=== PATIENT | female | born 1985 | race African-American/Black ===

== ENCOUNTER 2020-05-04 15:33 | Emergency (ER) | payer OTHER ==
[~2020-05-04] VITALS: Ht 162.6 cm; Wt 202.8 kg
--- NOTE | 2020-05-04 15:54 | Emergency Department Note ---
History of Present Illnes History of Present Illness Chief Complaint: COVID PUI History of Present Illness This is a 35 year old female 3 days of fevers and cough. Seen at 3 days prior with neg COVID-19 test. Seen by PCP today and sent to ED for evaluation. Per spouse patient had a total of 3 negative COVID tests Historian: Patient, Family Member Past Medical/Family History Physician Review I have reviewed the patient's past medical and family history. Any updates have been documented here. Past Medical History Past Medical History: Hypertension Past Surgical History: Hernia Repair Social History Physically hurt or threatened: No Physical Exam Related Data Allergies: Coded Allergies: No Known Allergies (Unverified , 05/04/20) Vital signs reviewed: Yes Physical Exam CONSTITUTIONAL Constitutional: Present obese, Present morbidly obese, Present distressed, Present ill appearing HENT HENT: Present normocephalic, Present atraumatic, Present oropharynx clear/moist, Present nose normal HENT L/R: Present left ext ear normal, Present right ext ear normal EYES Eyes: Reports PERRL, Reports conjunctivae normal NECK Neck: Present ROM normal PULMONARY Pulmonary: Present effort normal, Present breath sounds normal CARDIOVASCULAR Cardiovascular: Present regular rhythm, Present heart sounds normal, Present capillary refill normal, Present normal rate, Present tachycardia, Present LLE edema, Present RLE edema GASTROINTESTINAL Abdominal: Present soft, Present nontender, Present bowel sounds normal GENITOURINARY Genitourinary: Present exam deferred SKIN Skin: Present warm, Present dry MUSCULOSKELETAL Musculoskeletal: Present ROM normal NEUROLOGICAL Neurological: Present alert, Present oriented x 3, Present no gross motor or sensory deficits PSYCHOLOGICAL Psychological: Present mood/affect normal, Present judgement normal Results Imaging Imaging results reviewed: Yes Impressions [place] [id number] Patient Name: EUGENE HAMM MR #: [id number] : 1985 Age/Sex: 35/F Req #: [id number] Adm Physician: Ordered by: EDYTA VARGAS DO Report #: [id number] Location: ER Room/Bed: Procedure: [id number] DX/CHEST SINGLE (PORTABLE) Exam Date: 05/04/20 Exam Time: 1621 REPORT STATUS: Signed EXAMINATION: CHEST SINGLE (PORTABLE) INDICATION: Pneumonia, shortness of breath COMPARISON: None FINDINGS: LINES/TUBES:None LUNGS:The lungs are moderately inflated. Hazy bilateral opacities. PLEURA:No pleural effusion or pneumothorax. MEDIASTINUM:The cardiomediastinal silhouette appears enlarged. BONES/SOFT TISSUES:No acute osseous injury. ABDOMEN:No free air under the diaphragm. IMPRESSION: Cardiomegaly and hazy bilateral opacities can be seen in the setting of edema, however superimposed pneumonitis could also have this appearance and should be excluded clinically. Signed by: Sri Stanford MD on 05/04/2020 4:34 PM Dictated By: SRI STANFORD MD [id number] Transcribed By: KASEY on 05/04/20 1634 COPY TO: EDYTA VARGAS DO~ Procedures 12 Lead ECG Interpretation ECG Interpretation : ECG: ECG 1 Date: May 04, 2020 Time: 16:02 Prior ECG tracings: reviewed Rhythm: sinus tachycardia BPM: 105 ST segments normal: Yes T waves normal: Yes Other findings: no other findings Clinical Impression: non-specific ECG Critical Care Time Total Critical Care Time (min): 31 Time ED Physician saw patient: 16:03 Critcal care necessary due to: respiratory failure Critcal care time spent by me: develop tx plan w patient/surrogate, discussion w primary provider, examination of patient, obtaining hx from patient/surrogate, order/perform tx or interventions, order/review laboratory studies, order/review radiographic studies, pulse oximetry, re-evaluation of patient condition, vascular access procedures Assessment & Plan Medical Decision Making MDM 35 yof presents with dyspea and hypoxia. Respiratory distress upon arrival. Diff Dx : PE, PTX, CHF, Sepsis, COVID-19 URI infection, ACS, COPDD, ARDS, airway obstruction, Lung CA. Patient oxygen responsive. Plan to admit transfer Assessment & Plan Final Impression: (1) CHF (congestive heart failure) (2) Person under investigation for COVID-19 (3) Hypoxia EDYTA VARGAS DO May 04, 2020 15:54
[2020-05-04] MEDS ORDERED: ACETAMINOPHEN 325 MG TAB PO STA (16:05)
[2020-05-04 16:28] LABS: BASOPHILS % 0.4 % (0.0-1.0); EOSINOPHILS # (AUTO) 0.1 (0.0-0.4); EOSINOPHILS % 0.7 % (0.0-6.0); HEMATOCRIT 29.5 % (34.2-44.1); HEMOGLOBIN 8.5 g/dL (12.0-16.0); LYMPHOCYTES # (AUTO) 1.9 (1.0-3.2); LYMPHOCYTES % 18.5 % (18.0-39.1); MEAN CORPUSCULAR HEMOGLOBIN 21.2 pg (28-32); MEAN CORPUSCULAR HGB CONC 28.8 g/dL (31-35); MEAN CORPUSCULAR VOLUME 73.6 fL (81-99); MONOCYTES # (AUTO) 1.4 (0.2-0.8); MONOCYTES % 14.3 % (4.4-11.3); NEUTROPHILS # (AUTO) 6.6 (2.1-6.9); NEUTROPHILS % 65.4 % (38.7-80.0); PLATELET COUNT 157 x10e3/uL (140-360); RED BLOOD COUNT 4.01 x10e6/uL (3.6-5.1)
[2020-05-04] MEDS ORDERED: PIPER-TAZ 3.375 GM 50 ML IV ONE (16:30)
--- NOTE | 2020-05-04 16:37 | Diagnostic Imaging Report ---
EXAMINATION: CHEST SINGLE (PORTABLE) INDICATION: Pneumonia, shortness of breath COMPARISON: None FINDINGS: LINES/TUBES:None LUNGS:The lungs are moderately inflated. Hazy bilateral opacities. PLEURA:No pleural effusion or pneumothorax. MEDIASTINUM:The cardiomediastinal silhouette appears enlarged. BONES/SOFT TISSUES:No acute osseous injury. ABDOMEN:No free air under the diaphragm. IMPRESSION: Cardiomegaly and hazy bilateral opacities can be seen in the setting of edema, however superimposed pneumonitis could also have this appearance and should be excluded clinically. Signed by: Luis M Stanford MD on 05/04/2020 4:34 PM
[2020-05-04 16:48] LABS: ALANINE AMINOTRANSFERASE 12 IU/L (0-55); ALBUMIN 3.4 g/dL (3.5-5.0); ALBUMIN/GLOBULIN RATIO 0.9 (0.8-2.0); ALKALINE PHOSPHATASE 52 IU/L (40-150); ANION GAP 12.8 mmol/L (8-16); BLOOD UREA NITROGEN 14 mg/dL (7-26); BUN/CREATININE RATIO 13 (6-25); CALCIUM 8.3 mg/dL (8.4-10.2); CARBON DIOXIDE 26 mmol/L (22-29); CHLORIDE 102 mmol/L (98-107); CREATINE KINASE 156 IU/L (29-168); CREATININE, SERUM 1.08 mg/dL (0.57-1.11); EST GLOMERULAR FILTRATION RATE > 60 ML/MIN (60-); GLUCOSE 122 mg/dL (74-118); POTASSIUM 3.8 mmol/L (3.5-5.1); SODIUM 137 mmol/L (136-145)
[2020-05-04 16:54] LABS: B-TYPE NATRIURETIC PEPTIDE2 284.8 pg/mL (0-100)
--- NOTE | 2020-05-04 17:30 | NUR ---
patient o2 sats are 86% on room air. put on 4 liters nc to maintain saturation level above 92%
--- NOTE | 2020-05-04 21:28 | NUR ---
[facility] states 1.5 hour ETA at this time due to bariatric stretcher request.
[2020-05-04 21:50] LABS: HYPOCHROMASIA SLIGHT; PLATELET ESTIMATE ADEQUATE; PLATELET MORPHOLOGY COMMENT NORMAL; RBC MORPHOLOGY COMMENT NORMAL
[2020-05-04 22:44] LABS: ABG PCO2 41 mmHg (35-45); ABG PH 7.41 (7.35-7.45)
[2020-05-04 22:45] LABS: ABG HCO3 27 mmol/L (22-26); ABG PO2 86 mmHg (80-105)
== END 2020-05-04 23:11 | disposition short-term general hospital (02) ==
LOC: ER 15:55
DX: I11.0 Hypertensive heart disease with heart failure (principal); I50.9 Heart failure, unspecified; R09.02 Hypoxemia; Z20.828 Contact with and (suspected) exposure to other viral communicable diseases; E66.01 Morbid (severe) obesity due to excess calories; Z11.59 Encounter for screening for other viral diseases; Z68.45 Body mass index [BMI] 70 or greater, adult
CPT/HCPCS: 36415; 36600; 71045; 80053; 82550; 82553; 82805; 83605; 83880; 84484; 85025; 87040; 87635; 93005; 93306; 99285; J2543; U0002

== ENCOUNTER 2021-12-09 13:15 | Emergency (ER) | payer SELFPAY ==
[~2021-12-09] VITALS: Ht 165.1 cm; Wt 237.2 kg
[2021-12-09 13:42] LABS: BASOPHILS % 0.3 % (0.0-1.0); EOSINOPHILS # (AUTO) 0.1 (0.0-0.4); EOSINOPHILS % 1.7 % (0.0-6.0); HEMATOCRIT 40.2 % (34.2-44.1); HEMOGLOBIN 12.5 g/dL (12.0-16.0); LYMPHOCYTES # (AUTO) 1.2 (1.0-3.2); LYMPHOCYTES % 18.6 % (18.0-39.1); MEAN CORPUSCULAR HEMOGLOBIN 28.1 pg (28-32); MEAN CORPUSCULAR HGB CONC 31.1 g/dL (31-35); MEAN CORPUSCULAR VOLUME 90.3 fL (81-99); MONOCYTES # (AUTO) 0.6 (0.2-0.8); MONOCYTES % 9.8 % (4.4-11.3); NEUTROPHILS # (AUTO) 4.4 (2.1-6.9); NEUTROPHILS % 69.3 % (38.7-80.0); PLATELET COUNT 164 x10e3/uL (140-360); RED BLOOD COUNT 4.45 x10e6/uL (3.6-5.1); RED CELL DISTRIBUTION WIDTH 16.7 % (11.7-14.4)
[2021-12-09 13:55] LABS: ALBUMIN 3.6 g/dL (3.5-5.0); ALBUMIN/GLOBULIN RATIO 0.8 (0.8-2.0); ANION GAP 15.7 mmol/L (8-16); CALCIUM 9.1 mg/dL (8.4-10.2); CREATININE, SERUM 0.93 mg/dL (0.57-1.11); POTASSIUM 4.7 mmol/L (3.5-5.1)
[2021-12-09 14:22] LABS: CLARITY,URINE CLEAR (CLEAR); COLOR,URINE YELLOW (YELLOW); KETONES,URINE NEGATIVE (NEGATIVE); LEUKOCYTE ESTERASE ,URINE NEGATIVE (NEGATIVE); NITRITE,URINE NEGATIVE (NEGATIVE); PROTEIN,URINE DIPSTICK NEGATIVE (NEGATIVE); URINE UROBILINOGEN 0.2 mg/dL (0.2 - 1)
[2021-12-09 14:30] LABS: BACTERIA,URINE RARE /HPF; RBC,URINE 21-50 /HPF (0-5); WBC,URINE (MAN) 0-5 /HPF (0-5)
== END 2021-12-09 15:56 | disposition home or self-care (01) ==
LOC: ER 13:29
DX: R07.89 Other chest pain (principal); R53.1 Weakness; R51.9 Headache, unspecified; I10 Essential (primary) hypertension
CPT/HCPCS: 36415; 71046; 80053; 81001; 81025; 85025; 93005; 99284